=== PATIENT | male | born 1990 | race African-American/Black ===

== ENCOUNTER 2020-05-26 18:59 | Emergency (ER) | payer MEDICAID ==
[~2020-05-26] VITALS: Ht 165.1 cm; Wt 59.0 kg
--- NOTE | 2020-05-26 19:30 | NUR ---
ED Nurse Note: pT AMBULATED TO ED FROM HOME C/O HEADACHE AND BODY ACHES AFTER TESTING POSITIVE FOR COVID TODAY. PT REPORTS FEVER AT HOME, 98.4 IN TRIAGE. pT SPO2 99% ON ROOM AIR, PT IS A&OX4, VSS PT PLACED IN ISOLATION ROOM
[2020-05-26 19:44] VITALS: BP 118/81
--- NOTE | 2020-05-26 19:52 | Emergency Room Report ---
History of Present Illness General Chief Complaint: General Complaint Source: Patient Present Illness HPI Disclaimer: Please note that this report is being documented using [employer] technology. This can lead to erroneous entry secondary to incorrect interpretation by the dictating instrument. HPI: 29-year-old otherwise healthy male presents for evaluation after testing positive for COVID-19. He works at the [employer] [employer] where there was a recent outbreak. Tested positive by rapid test today. He reported some sore throat but otherwise denies shortness of breath, cough, chest pain. He reported some nasal congestion but this resolved. Denies nausea, vomiting, diarrhea. He took zinc and vitamin C but no analgesics or antipyretics prior to arrival. Denies respiratory problems such as asthma or COPD. PMH: Reviewed PSH: Reviewed Allergies: Reviewed Social Hx: Reviewed Allergies: Coded Allergies: No Known Allergies (Unverified , 05/26/20) COVID-19 Screening Contact w/high risk pt: Yes Experienced COVID-19 symptoms?: Yes COVID-19 Testing performed [employer]: Yes - 05/21 COVID-19 Screening: Negative COVID-19 COVID-19 Testing Source: work Nursing Documentation-PMH Past Medical History: No Stated History Review of Systems All Other Systems: negative except mentioned in HPI Physical Exam Vital Signs Date Time Temp Pulse Resp B/P (MAP) Pulse Ox O2 Delivery O2 Flow Rate FiO2 05/26/20 19:28 98.4 84 18 118/81 (93) 93 General: Awake and alert, no acute distress, afebrile HEENT: NC/AT. EOMI. Cardiovascular: RRR. S1 and S2 normal. No murmur appreciated Resp: Normal work of breathing. No cough, wheezing or crackles appreciated Skin: Intact. No abrasions, laceration or rash over the exposed skin MSK: Normal tone and bulk. Moving all extremities. No obvious deformity. Neuro: Awake and alert. Mentating appropriately. Medical Decision Making Diagnostic Impression: Primary Impression: Exposure to COVID-19 virus ER Course Well-appearing 29-year-old male presents for evaluation after testing positive for COVID-19. He was concern for pneumonia and x-ray was obtained. No infiltrate or other abnormality seen on chest x-ray. He was initially triaged as 93% on room air however this was an error and retesting shows 99%. He is no respiratory distress and otherwise well-appearing. Do not believe he requires labs or further imaging at this time. Stable for outpatient follow-up. Will quarantine for 14 days and have retest before returning to work. Discussed reasons to return to the ER. He understands and agrees with this treatment plan. Chest X-Ray Diagnostic Results Chest X-Ray Diagnostic Results : Chest X-Ray Ordered: Yes # of Views/Limited/Complete: 1 View Indication: Other - Covid exposure EP Interpretation: Yes Interpretation: no consolidation, no effusion, no pneumothorax, no acute cardiopulmonary disease Impression: No acute disease Electronically Signed by: Electronically signed by Dr. Jesse Salazar MD Last Vital Signs Date Time Temp Pulse Resp B/P (MAP) Pulse Ox O2 Delivery O2 Flow Rate FiO2 05/26/20 19:44 98.4 84 18 118/81 93 Disposition: HOME, SELF-CARE Condition: Stable Scripts Acetaminophen* (TYLENOL EXTRA STRENGTH*) 500 Mg Tablet 500 MG ORAL Q8H PRN for Prn Headache/Temp > 101, #30 TAB 0 Refills Prov: Jesse Salazar MD 05/26/20 Referrals: NON PHYSICIAN (PCP) Jesse Salazar MD May 26, 2020 19:52
[2020-05-26] MEDS ORDERED: TYLENOL EXTRA500 MG ORAL (20:01)
[2020-05-26 20:18] VITALS: BP 118/81
--- NOTE | 2020-05-26 20:18 | NUR ---
ER DISCHARGE NOTE: Patient is cleared to be discharged per ERMD, pt is aox4, on room air, with stable vital signs. pt was given dc and prescription instructions, pt was able to verbalize understanding, pt id band REMOVED pt is able to ambulate with steady gait. pt took all belongings.
--- NOTE | 2020-05-27 21:01 | Diagnostic Imaging Report ---
Indication: Reason For Exam: SOB Technique: One view of the chest Comparison: none Findings: Lungs and pleural spaces are clear. Heart size is normal. Impression: No acute process
== END 2020-05-26 20:18 | disposition home or self-care (01) ==
LOC: EMR 19:30
DX: R07.0 Pain in throat (principal); Z20.828 Contact with and (suspected) exposure to other viral communicable diseases
CPT/HCPCS: 71045; Z7502; 99283